=== PATIENT | female | born 1940 | race Caucasian/White ===

== ENCOUNTER → 2017-02-27 | Outpatient (CLI) | payer OTHER ==
[~2017-02-27] MED LIST: AMLO-110 PO; ASPI325T39 PO; HYDR-5688 PO; MECL1TAB40 PO; MULT1CAP7 PO; OMEP20TA PO; PRED20TA PO; TRIA75TA PO
[2017-02-27 12:45] LABS: AST/SGOT 17 U/L (15-37); BLOOD UREA NITROGEN 13 mg/dl (7-18); BUN/CREATININE RATIO 14.4 (10-20); CALCIUM 9.4 mg/dl (8.5-10.1); CARBON DIOXIDE 32 mmol/L (21-32); CHLORIDE 102 mmol/L (98-107); CHOLESTEROL 189 mg/dl (0-200); CREATININE 0.89 mg/dl (0.60-1.20); GLUCOSE 88 mg/dl (70-99); POTASSIUM 3.7 mmol/L (3.5-5.1); SODIUM 139 mmol/L (136-145); TRIGLYCERIDES 51 mg/dl (0-150); VERY LOW DENSITY LIPOPROT CALC 10 mg/dl
[2017-02-27 12:56] LABS: ALB/GLOB RATIO 1.1 (0.9-2); ALKALINE PHOSPHATASE 96 U/L (45-117); ALT/SGPT 26 U/L (12-78); CHOLESTEROL/HDL RATIO 2.7; HDL CHOLESTEROL 70 mg/dl; LDL CHOLESTEROL CALCULATED 109 mg/dl
== END | disposition home or self-care (01) ==
LOC: C.LABBFT 09:55
PROVIDERS: ATTEND Internal Medicine
DX: R09.89 Other specified symptoms and signs involving the circulatory and respiratory systems (principal)

== ENCOUNTER → 2017-05-05 | Outpatient (CLI) | payer OTHER ==
--- NOTE | 2017-05-05 12:50 | DIAGNOSTIC IMAGING REPORT ---
ULTRASOUND RIGHT LOWER EXTREMITY VENOUS CLINICAL HISTORY: Right leg swelling. COMPARISON STUDY: Right lower extremity venous ultrasound dated 10/18/2013. TECHNIQUE: Real-time, grayscale, and color Doppler sonography of the deep veins of the right lower extremity was performed from the inguinal crease to the calf. Compression and augmentation were utilized. FINDINGS: There is no sonographic evidence of deep venous thrombosis identified in the right lower extremity. The common femoral, superficial femoral, and popliteal veins are patent and normally compressible. The greater saphenous vein and the profunda femoris vein at the junction with the common femoral vein are clear. The visualized calf veins are patent. IMPRESSION: There is no sonographic evidence of deep venous thrombosis identified in the right lower extremity. Electronically signed by: Nirmal Valderrama M.D. 05/05/2017 12:48 PM Dictated Date/Time: 05/05/2017 12:47 PM
--- NOTE | 2017-05-05 13:17 | DIAGNOSTIC IMAGING REPORT ---
RIGHT KNEE 2 VIEWS CLINICAL HISTORY: Right knee swelling. FINDINGS: AP and crosstable lateral views of the right knee are compared to study dated 10/18/2013. The skeletal structures are osteopenic. A right knee arthroplasty is in near anatomic alignment. There has been undersurface remodeling of the patella. Mild periprosthetic lucency is suggested around the tibial component. No fracture is seen. There is no joint effusion. The overlying soft tissues are within normal limits. IMPRESSION: 1. No acute bony abnormality is seen in the right knee. 2. A right knee arthroplasty is in near-anatomic alignment. 3. Mild periprosthetic lucency is suggested around the tibial component of the arthroplasty. This is nonspecific but could be seen in the setting of loosening. Clinical correlation will be required. Electronically signed by: Nirmal Valderrama M.D. 05/05/2017 1:15 PM Dictated Date/Time: 05/05/2017 1:13 PM
--- NOTE | 2017-05-10 12:43 | CODING QUERY MEDICAL NECESSITY ---
SUPPORTING DIAGNOSIS NEEDED A supporting diagnosis is required for the test/procedure performed on this patient in order for us to be reimbursed by the patient's insurance. Please provide a supporting diagnosis for the following test/procedure listed below next to the test name along with your signature. *If there is no additional diagnosis for this patient that would support the following test/procedure please document that below next to the test/procedure. Test(s)/Procedure(s) that require a supporting diagnosis: * US VENOUS UNIL LWR EXT DOPPLER DIAGNOSIS: Provider Signature: Date: Thank you Elda Jade [employer] Once completed, please kindly fax back to [phone] For questions please call [phone]
== END | disposition home or self-care (01) ==
LOC: C.ULTR 12:07
PROVIDERS: ATTEND Internal Medicine
DX: M79.604 Pain in right leg (principal); M25.461 Effusion, right knee; M79.89 Other specified soft tissue disorders; R20.2 Paresthesia of skin; Z96.651 Presence of right artificial knee joint

== ENCOUNTER 2017-07-22 18:18 | Emergency (ER) | payer OTHER ==
[~2017-07-22] VITALS: Ht 175.3 cm; Wt 89.1 kg
[~2017-07-22 18:18] MED LIST changes: -PRED20TA PO
[2017-07-22 18:26] VITALS: Ht 175.3 cm; Wt 89.1 kg
[2017-07-22] MEDS ORDERED: METHYLPREDNISOLONE 125 MG VIAL IM STA (18:39)
[2017-07-22] MEDS ORDERED: ACETAMINOPHEN 325 MG TAB PO STA (18:55)
[2017-07-22] MEDS ORDERED: PRED20TA PO (20:56)
[2017-07-22 21:06] VITALS: BP 149/62; PULSE 49; O2SAT 99
--- NOTE | 2017-07-23 00:23 | EMERGENCY ROOM VISIT NOTE ---
History Report prepared by Emerson: Aaron Velazquez Under the Supervision of: Dr. Juan C Kaba M.D. First contact with patient: 18:34 Chief Complaint: ALLERGIC REACTION Stated Complaint: STUNG ON TONGUE BY BEE, SWELLING History of Present Illness The patient is a 76 year old female who presents to the Emergency Room with complaints of a constant allergic reaction starting at around 1805 tonight after getting stung by a bee on the tongue while drinking through a straw. The patient states that she was stung on the tip of the tongue, and she states that it was swollen. She states that her throat has felt okay, and she has not had any itchiness, though she feels nervous. The patient states that she started to feel better after sucking on some ice. The patient denies any abdominal pain, nausea, or face swelling or itchiness. The patient states that she has not been stung by a bee for a long time, and she was unsure if she had a reaction last time, though she states that her son is very allergic. Source of History: patient Onset: 1805 Position: other (global) Quality: other (allergic reaction) Timing: constant Associated Symptoms: No nausea, No abdominal pain Note: Associated symptoms: Tongue swelling Review of Systems See HPI for pertinent positives & negatives. A total of 10 systems reviewed and were otherwise negative. 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 (4) Hallux valgus (acquired), left foot (5) History of pulmonary embolus (PE) (6) Hypertension (7) Pulmonary embolism (8) Septic joint of left knee joint Surgical Problems: (1) S/P cholecystectomy (2) S/P knee replacement Family History Blood clots Hypertension Social History Smoking Status: Never Smoker Alcohol Use: none Drug Use: none Marital Status: Housing Status: lives with family Occupation Status: retired Current/Historical Medications Scheduled Amlodipine (Norvasc), 5 MG PO QAM Aspirin (Aspirin Ec), 325 MG PO QAM Multiple Vitamins W/ Minerals (Multi For Her 50+), 1 CAPSULE PO QAM Prednisone (Prednisone), 3 TAB PO DAILY Triamterene & Hydrochlorothiaz (Hctz/Triamterene), 1 TAB PO QAM Scheduled PRN Meclizine HCl (Meclizine HCl), 1 TAB PO TID PRN for VERTIGO Allergies Coded Allergies: AYDEN Inhibitors (Unverified Allergy, Unknown, per PCP note , 07/22/17) Beef (Verified Allergy, Unknown, SEVERE NAUSEA AND VOMITING, 07/22/17) Celecoxib (Unverified Allergy, Unknown, per PCP note , 07/22/17) Sulfamethoxazole w/Trimethoprim (Unverified Allergy, Unknown, per PCP note , 07/22/17) Oxycodone (Verified Adverse Reaction, Mild, N/V, 07/22/17) Physical Exam Vital Signs Date Time Temp Pulse Resp B/P (MAP) Pulse Ox O2 Delivery O2 Flow Rate FiO2 07/22/17 21:06 49 17 149/62 99 07/22/17 20:40 50 18 135/61 99 07/22/17 18:58 98 Room Air 07/22/17 18:48 72 22 143/86 98 Room Air 07/22/17 18:26 76 20 176/67 98 Room Air Physical Exam Constitutional: Vital signs reviewed. Eyes: Pupils are equal round reactive to light. Conjunctiva are noninjected. ENT: Swelling to the tip of the tongue. No stinger present. Uvula is not swollen. Pharynx is clear without erythema or exudate. Mucous membranes are moist. Neck supple without meningeal signs. Respiratory: No wheezing. No stridor. Clear to auscultation bilaterally. Breath sounds are equal bilaterally. Cardiovascular: Regular rate and rhythm. No rubs or gallops. GI: Soft, nondistended and nontender. Bowel sounds are present. Musculoskeletal: No peripheral edema. Integumentary: No redness or swelling to the face or extremities. No hives. No cyanosis. Neurological: The patient is awake and alert. No focal deficits. Psychiatric: Anxious. Medical Decision & Procedures Medications Administered Medications (Trade) Dose Ordered Sig/Griselda Route Start Time Stop Time Status Last Admin Dose Admin Diphenhydramine HCl (Benadryl Cap) 50 mg NOW ONCE PO 07/22/17 18:45 07/22/17 18:46 DC 07/22/17 18:46 50 MG Methylprednisolone Sodium Succinate (Solu-Medrol IV) 125 mg NOW STAT IM 07/22/17 18:39 07/22/17 18:40 DC 07/22/17 18:47 125 MG Acetaminophen (Tylenol Tab) 650 mg NOW STAT PO 07/22/17 18:55 07/22/17 18:56 DC 07/22/17 19:02 650 MG ED Course 1833: The patient was evaluated in room C5. A complete history and physical exam was performed. 1838: Solu-Medrol IV 125mg IM 1844: Benadryl Arnold 50mg PO 1854: The patient just received a shot of Solu-Medrol in the left arm. She started weeping and is extremely anxious stating that her whole arm hurts from the elbow up. The arm does not show any swelling or erythema. She has tenderness to the injection site. No bleeding is noted. She was given Tylenol 650mg PO for her pain. We will continue to monitor her. 2053: I reevaluated the patient, and her tongue does not appear swollen, and her arm is not hurting her at this time. The patient will be discharged home. Medical Decision This is a 76-year-old female presents with an allergic reaction to bee sting to her tongue. I did perform a limited focused review of portions of the patient' s old chart on the electronic medical record. The patient has had no recent pertinent visits to this hospital. I did evaluate the patient as noted above. The patient is presenting after being stung on the tongue by ABR wasp. She does not have any stinger on her tongue. She has swelling to her tongue but no other symptoms. I did treat the patient with Benadryl 50 mg orally. She was also given Solu-Medrol 125 mg IM. Immediately after the IM injection the patient had severe pain to her left arm. The nurse stated that the injection was not unusual in any way. She was given Tylenol for pain and an ice pack. We did observe her in the ED for some time. Her arm pain eventually improved significantly. There is no signs of swelling or ecchymosis or bleeding. Her tongue swelling significantly improved and she felt well enough for discharge. She was advised to continue antihistamines at home. She was given a prescription for 4 days of prednisone. She was advised follow up with her doctor. She was discharged in good condition. Medication Reconcilliation Current Medication List: was personally reviewed by me Blood Pressure Screening Patient's blood pressure: Elevated blood pressure Blood pressure disposition: Referred to PCP Impression Primary Impression: Allergic reaction to bee sting Scribe Attestation The scribe's documentation has been prepared under my direct and personally reviewed by me in its entirety. I confirm that the note above accurately reflects all work, treatment, procedures, and medical decision making performed by me. Departure Information Dispostion Home / Self-Care Prescriptions Prednisone (Prednisone) 20 Mg Tab 3 TAB PO DAILY, #12 TAB FOR 4 DAYS Prov: Juan C Kaba M.D. 07/22/17 Referrals Blaze Jeffries M.D. (PCP) Forms HOME CARE DOCUMENTATION FORM, IMPORTANT VISIT INFORMATION Patient Instructions ED Bite Sting Insect Gen Allergic React, My [facility] Additional Instructions You have been examined and treated today on an emergency basis only. This is not a substitute for, or an effort to provide, complete comprehensive medical care. It is impossible to recognize and treat all injuries or illnesses in a single emergency department visit. It is therefore important that you follow up closely with your physician. Call as soon as possible for an appointment. Return for worsening symptoms or if you develop fever, shortness of breath, swelling to your throat or any other concerning symptoms.
== END 2017-07-22 21:07 | disposition home or self-care (01) ==
LOC: C.EDB 18:18 → C.EDC 21:07
DX: T63.441A Toxic effect of venom of bees, accidental (unintentional), initial encounter (principal); I10 Essential (primary) hypertension; Z86.711 Personal history of pulmonary embolism; Z96.659 Presence of unspecified artificial knee joint; Z90.49 Acquired absence of other specified parts of digestive tract; Z79.82 Long term (current) use of aspirin; Z79.899 Other long term (current) drug therapy; Z88.2 Allergy status to sulfonamides; Z88.5 Allergy status to narcotic agent; Z88.8 Allergy status to other drugs, medicaments and biological substances; Z91.018 Allergy to other foods; Z82.49 Family history of ischemic heart disease and other diseases of the circulatory system; Z83.2 Family history of diseases of the blood and blood-forming organs and certain disorders involving the immune mechanism

== ENCOUNTER → 2018-06-19 | Outpatient (CLI) | payer OTHER ==
[~2018-06-19] MED LIST changes: -AMLO-110 PO; +AMLO5TAB3 PO; -HYDR-5688 PO; -OMEP20TA PO
[2018-06-19 12:50] LABS: BASO % 0.8 %; BASO ABS # 0.03 K/uL (0-0.2); EOS % 9.9 %; EOS ABS # 0.37 K/uL (0-0.5); HEMATOCRIT 38.1 % (37-47); HEMOGLOBIN 12.8 g/dL (12.0-16.0); LYMPH % 40.3 %; MEAN CELL VOLUME 94.3 fL (80-100); MEAN CORPUSCULAR HEMOGLOBIN 31.7 pg (25-34); MEAN CORPUSCULAR HGB CONC 33.6 g/dl (32-36); MEAN PLATELET VOLUME 10.4 fL (7.4-10.4); MONO % 10.2 %; MONO ABS # 0.38 K/uL (0.11-0.59); NEUT % 38.8 %; NEUT ABS # 1.44 K/uL (1.4-6.5); PLATELET COUNT 287 K/uL (130-400); RED CELL DISTRIBUTION WIDTH CV 12.8 % (11.5-14.5); RED CELL DISTRIBUTION WIDTH SD 43.9 fL (36.4-46.3); WHITE BLOOD COUNT 3.72 K/uL (4.8-10.8)
== END | disposition home or self-care (01) ==
LOC: C.LABBFT 09:13
PROVIDERS: ATTEND Internal Medicine
DX: D72.819 Decreased white blood cell count, unspecified (principal)

== ENCOUNTER 2024-08-17 14:37 | Observation (INO) ==
--- NOTE | 2024-08-17 14:51 | Emergency Department Note ---
Impression & Plan Flank Pain, Ambulatory dysfunction Admission ED Provider Note HPI: History obtained from patient. The patient is a 84-year-old female who presents the emergency department with a chief complaint of left flank pain and left-sided chest discomfort. Patient states that she developed the symptoms earlier today. Patient states that she has some left-sided chest pain as well however this seems to correlate with palpation of the chest wall. Patient received Toradol and aspirin via EMS prior to arrival to the ED. On my assessment here in the ED the patient states that she still does have some pain however it is improved from previous. Chest pain only correlates with palpation the left side of the chest wall. On arrival here to the ED otherwise stable and appears to be in no acute distress. Patient is saturating well on room air on arrival. ROS: - Per HPI Differential Diagnosis: Kidney stone, pyelonephritis, urinary tract infection, costochondritis, musculoskeletal flank pain, diverticulitis flare, acute coronary syndrome, costochondritis, pleuritis, pericarditis, amongst other potential pathologies. *Outpatient medications and allergy history reviewed. PE: General: Alert HEENT: Normocephalic, trachea midline Eyes: Extraocular eye movement is intact, no scleral erythema Pulmonary: Clear to auscultation bilaterally, no wheezing Cardio: Regular rate and rhythm GI: Abdomen is soft to palpation : No suprapubic tenderness MSK: Reproducible tenderness to palpation to the left side of the chest, no evidence of trauma or malformation of the extremities, no edema, there is no tenderness to palpation of the lumbar spine in the midline Skin: No evidence of rash Neuro: Alert, no focal deficits Psychiatric: Cooperative INDEPENDENT INTERPRETATIONS: traffic monitor specialist: (As interpreted by myself): - An order was placed for continuous cardiac monitoring - Patient was noted to be in sinus rhythm with a rate of 75 EKG: (As interpreted by myself): Rate: 75 Rhythm: Normal sinus rhythm Intervals: Within normal limits ST changes: No ST elevation Time: 1443 Chest x-ray: (As interpreted by myself): No acute disease Interventions provided in ED: -IV fluid bolus, IV morphine, IV Zofran Medical Decision Making: IV was established and lab work obtained, patient was placed on school bus monitor. Lab work shows no leukocytosis, hemoglobin stable at 10.1, platelet count is normal, CMP shows a mild hypokalemia at 3.3, troponin is negative x 1, EKG per my interpretation shows normal sinus rhythm without any acute ischemic changes. Chest x-ray per my interpretation does not show any evidence of any focal infiltrate. Urinalysis does not show any evidence of infection. COVID-[address] imaging of the abdomen pelvis without IV contrast was obtained that does not show any evidence of any acute inflammatory findings. Delta troponin was obtained that remains negative. Patient is anticoagulated on Eliquis, therefore low suspicion for PE. On my reassessment the patient states she does not have much improvement in her pain despite receiving IV morphine and IV Zofran here in the ED in addition to the IV Toradol she reportedly received via EMS. Patient was ambulated at the bedside by the RN and had pain in the left lower back and had trouble walking. CT imaging of the abdomen pelvis does not show any evidence of any obvious fractures or lytic lesions within the lumbar spine. She does not feel comfortable with discharge home at this time given the degree of pain she is having with some trouble with ambulation. Patient does not have any red flag findings on history or exam that would be consistent with cauda equina syndrome. Motor and sensory function is intact distally in the bilateral lower extremities. She does not have any radicular symptoms down her legs. Patient does have a borderline temperature here 37.7, however there is no obvious source for infection. Given the patient is ambulatory dysfunction and left flank pain and lower back pain, I did discuss her presentation with the on- call hospitalist, Dr. Leon, and the patient was placed for admission in stable condition. Disposition discussion held by myself with: -Patient and family at bedside Diagnosis: 1. Left flank pain, acute 2. Nonspecific chest discomfort, acute 3. Hypokalemia, acute 4. 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 Allergic reaction to bee sting (Acute) Contracture of joint of left foot Leg pain, right (Acute) Sinus bradycardia (Acute) WBC decreased (Acute) Osteopenia after menopause Arthritis, multiple joint involvement Ocular migraine Abdominal aortic atherosclerosis Vitamin D deficiency Metabolic syndrome Impaired fasting glucose Chronic anticoagulation eliquis daily Systolic murmur Right carotid bruit (Acute) entered 03/21/19 per EMR, patient had head and neck CTA 01/15/19 without significant stenosis Paroxysmal atrial fibrillation (Chronic) on eliquis--follows with PCP Chronic osteoarthritis (Acute) Hypertension (Chronic) Hallux valgus (acquired), left foot History of pulmonary embolus (PE) 2012 after knee replacement surgery Medical History COVID-19 Encounter for pre-operative examination Lump in neck Dietary counseling and surveillance Hip pain Back pain Shingles History of blood transfusion Obesity (BMI 30-39.9) Macular degeneration History of COVID-19 Surgical History S/P cholecystectomy S/P knee replacement History of dilatation and curettage History of toe surgery History of total right knee replacement (TKR) History of wisdom tooth extraction H/O tubal ligation History of total abdominal hysterectomy and bilateral salpingo-oophorectomy History of surgery of liver Family History Father Myocardial infarction Hypertension Grandfather (Paternal) Stroke Brother Myocardial infarction Hypertension Sister Hypertension Family history of reaction to anesthesia Denies family history of Ovarian cancer Prostate cancer Diabetes Depression Breast cancer Lung cancer Colorectal cancer Social History Smoking Status: Unknown if ever smoked Second Hand Exposure: No; Do You Dip or Chew Tobacco: No; Hx Alcohol Use: No Hx Substance Use: No Preferred Language: Azeri Communication Ability: Effective Visual Impairment: Limited Hearing Ability: Normal Cpa Tax Required: No Beliefs That Will Affect Care: None marital status: / Current Living Situation: Alone current occupational status: retired How many Children do You have: 3 Feels Safe at Home: Yes Childhood Exposure to Second-Hand Smoke: No caffeine: Yes Dental Care, Regularly: No Physical Activity Frequency: 3-4 Times per Week Seatbelt Use: always Sunscreen Use: Yes Assistive Devices: Glasses Allergies Allergies Allergy/AdvReac Type Severity Reaction Status Date / Time Beef Containing Products Allergy Severe SEVERE Verified 07/30/24 14:01 NAUSEA AND VOMITING methylprednisolone Allergy Severe "muscle Verified 07/30/24 14:01 [From Solu-Medrol] reaction like someone was hammering on my arm" sulfamethoxazole Allergy Unknown per pt can Verified 07/30/24 14:01 not have due to liver bypass oxycodone AdvReac Mild N/V Verified 07/30/24 14:01 celecoxib AdvReac Unknown nausea/vomi Verified 07/30/24 14:01 ting trimethoprim AdvReac Unknown per pt can Verified 07/30/24 14:01 not have due to liver bypass Home Meds Home Medications Medication Instructions Recorded Confirmed ohvmrqkqdjkb-zsbpnfdm-svnki acid 1 cap PO QAM 01/15/19 07/30/24 400 mcg-vitamin K 80 mcg capsule (Multi For Her 50 Plus) fyermbrj-dnl-xonwqw 5 mg-zeaxanth 1 cap PO QAM 03/28/22 07/30/24 1 mg-bilberry 7.5 mg-herbal capsule ([employer] Health Formula) Previous Rx's Medication Instructions Recorded amlodipine 5 mg tablet 5 mg PO QAM #90 tabs 09/20/23 triamterene 37.5 1 cap PO QAM #90 caps 09/20/23 mg-hydrochlorothiazide 25 mg capsule benzonatate 100 mg capsule 100 mg PO TID PRN cough #20 caps 11/06/23 cyclobenzaprine 5 mg tablet 5 mg PO TID PRN muscle spasm #30 11/06/23 tabs inhalational spacing device (Shayan #1 ea 05/06/24 Aerosol Vilas Enhancer spacer) albuterol sulfate 90 mcg/actuation 1 inh inhalation QID PRN shortness 06/16/24 aerosol inhaler of breath or wheezing #6.7 grams rosuvastatin 5 mg tablet 5 mg PO HS #90 tabs 08/04/24 apixaban 5 mg tablet (Eliquis) 5 mg PO BID 90 days #180 tabs 08/11/24 Results & Data (ED) Vital Signs Vital Signs - 24 hr 08/17/24 14:18 08/17/24 14:18 08/17/24 14:49 Temperature 37.7 C H Temperature Source Oral Pulse Rate 75 Pulse Rate [Right Finger] Pulse Rhythm [Right Finger] Pulse Strength [Right Finger] Respiratory Rate 23 Respiratory Effort / Characteristics Respiratory Depth Respiratory Pattern Blood Pressure 159/75 H Blood Pressure [Right Arm] Blood Pressure Mean 103 Blood Pressure Mean [Right Arm] Blood Pressure Position [Right Arm] Pulse Oximetry 96 Oxygen Delivery Method Room Air Room Air Room Air Sepsis Recent Fever Within 48 Hours Yes Sepsis New/Unexplained Change in Mental Status No Sepsis Action Taken by Nursing No Action Required 08/17/24 16:06 08/17/24 16:35 08/17/24 17:02 Temperature Temperature Source Pulse Rate 57 L Pulse Rate [Right Finger] 66 67 Pulse Rhythm [Right Finger] Regular Regular Pulse Strength [Right Finger] Normal Normal Respiratory Rate 21 20 Respiratory Effort / Characteristics Non-Labored Non-Labored Respiratory Depth Normal Normal Respiratory Pattern Regular Regular Blood Pressure Blood Pressure [Right Arm] 139/65 121/71 Blood Pressure Mean Blood Pressure Mean [Right Arm] 89 87 Blood Pressure Position [Right Arm] Lying Lying Pulse Oximetry 94 94 Oxygen Delivery Method Room Air Room Air Sepsis Recent Fever Within 48 Hours Sepsis New/Unexplained Change in Mental Status Sepsis Action Taken by Nursing Laboratory Data 08/17/24 14:50 08/17/24 14:50 Lab Results 08/17/24 08/17/24 08/17/24 Range/Units 14:50 15:01 16:10 WBC 8.78 (4.8-10.8) K/ul RBC 3.46 L (4.20-5.40) M/uL Hgb 10.1 L (12.0-16.0) g/dl Hct 31.5 L (37.0-47.0) % MCV 91.0 (80.0-100.0) fL MCH 29.2 (25.0-34.0) pg MCHC 32.1 (32.0-36.0) g/dL RDW Std Deviation 45.1 (36.4-46.3) fL RDW Coeff of Moody 13.4 (11.5-14.5) % Plt Count 190 (130-400) K/uL MPV 10.4 (9.4-12.4) fL Immature Gran % (Auto) 0.5 % Neut % (Auto) 91.7 % Lymph % (Auto) 3.4 % Graham % (Auto) 3.1 % Eos % (Auto) 0.8 % Baso % (Auto) 0.5 % Neut # (Auto) 8.06 H (1.40-6.50) K/uL Lymph # (Auto) 0.30 L (1.20-3.40) K/uL Graham # (Auto) 0.27 (0.11-0.59) K/uL Eos # (Auto) 0.07 (0.00-0.50) K/uL Baso # (Auto) 0.04 (0.00-0.20) K/uL Immature Gran # (Auto) 0.04 (0.01-0.20) K/uL PT 11.0 (9.0-12.0) Seconds INR 1.0 (0.9-1.1) Sodium 135 L (136-145) mmol/L Potassium 3.3 L (3.5-5.1) mmol/L Chloride 101 (98-107) mmol/L Carbon Dioxide 28 (21-32) mmol/L Anion Gap 6 (3-11) BUN 19 (6-23) mg/dl Creatinine 0.68 (0.6-1.2) mg/dl Est Cr Clr Drug Dosing 81.4 ml/min eGFR 86.90 BUN/Creatinine Ratio 27.9 H (10-20) Glucose 102 H (70-99(Fasting)) mg/dl Calcium 8.8 (8.6-10.3) mg/dl Total Bilirubin 0.8 (0.2-1.0) mg/dl AST 23 (13-39) U/L ALT 15 (7-52) U/L Alkaline Phosphatase 96 (34-104) U/L Troponin I High Sens 9.3 11.1 (0-14) pg/ml Total Protein 6.1 (6.0-8.3) gm/dl Albumin 3.5 (3.4-5.0) gm/dl Globulin 2.6 (2.5-4.0) gm/dl Albumin/Globulin Ratio 1.3 (0.9-2) Lipase 10 L (11-82) U/L Urine Color Yellow Urine Appearance Clear (Clear) Urine pH 6.0 (4.5-7.5) Ur Specific [place] 1.011 (1.000-1.030) Urine Protein Negative (Negative) Urine Glucose (UA) Negative (Negative) Urine Ketones Negative (Negative) Urine Blood Negative (Negative) Urine Nitrite Negative (Negative) Urine Bilirubin Negative (Negative) Urine Urobilinogen Negative (Negative) Ur Leukocyte Esterase Negative (Negative) SARS-CoV-2 (PCR) NEGATIVE (Negative) Influenza Type A (PCR) Negative (Neg) Influenza Type B (PCR) Negative (Neg) RSV (RT-PCR) Negative (Neg) Administered Medications Discontinued Medications Sodium Chloride (Nss) 500 mls @ 999 mls/hr IV .Q31M STA Stop: 08/17/24 15:19 Last Infusion: 08/17/24 16:31 Dose: Infused Documented By: Admin: 08/17/24 15:21 Dose: 999 mls/hr Documented By: HOMERO Morphine Sulfate (Morphine Sulfate 4 Mg/Ml 1 Ml Carp\\Vial) 4 mg IV NOW STA Stop: 08/17/24 16:25 Last Admin: 08/17/24 16:28 Dose: 4 mg Documented By: HOMERO Ondansetron HCl (Ondansetron Inj 2 Mg/Ml 2 Ml Vial) 4 mg IV NOW STA Stop: 08/17/24 16:25 Last Admin: 08/17/24 16:27 Dose: 4 mg Documented By: HOMERO Potassium Chloride (Potassium Chloride Pwd 20 Meq Pack) 20 meq PO NOW STA Stop: 08/17/24 16:59 Last Admin: 08/17/24 17:04 Dose: 20 meq Documented By: HOMERO Imaging Data Radiologist's Impression: Abdomen/Pelvis CT 08/17/24 14:49 CT SCAN OF THE ABDOMEN AND PELVIS WITHOUT IV CONTRAST CLINICAL HISTORY: Left flank pain. COMPARISON STUDY: Abdominal CT dated 07/17/2024. TECHNIQUE: CT scan of the abdomen and pelvis is performed from the lung bases to the proximal femora. Images are reviewed in the axial, sagittal, and coronal planes. IV contrast was not administered for this examination. A dose lowering technique was utilized adhering to the principles of ALARA. CT DOSE: 1214.92 mGy.cm FINDINGS: Lung bases: The heart is normal in size and without pericardial effusion. There is coronary artery atherosclerosis. Diminished attenuation of the cardiac blood pool as compared to the myocardium suggests anemia. The lung bases are clear noting bibasilar scarring/atelectasis. Liver: The unenhanced liver is normal in size, contour, and attenuation. Pneumobilia is similar previous, left lobe greater than right. There is no intrahepatic biliary ductal dilatation. Gallbladder: Surgically absent noting clips in the gallbladder fossa. Spleen: Normal in size and attenuation. Pancreas: The unenhanced pancreas is mildly atrophic and grossly unremarkable. Adrenal glands: Unremarkable. Kidneys: The unenhanced kidneys demonstrate mild cortical atrophy and are without hydronephrosis. No renal calculi are identified and there is no ureteral stone. There is no evidence of contour deforming renal mass lesion. Abdominal vasculature: The abdominal aorta is normal in course and caliber noting moderate atherosclerotic calcification. Bowel: There is wmrv-no-lwbjxqor colonic fecal retention. No bowel obstruction is seen. The appendix is well-visualized and normal. Peritoneum: There is no intraperitoneal free air or abdominal ascites. There is a small fat-containing umbilical hernia. Lymphadenopathy: None. Pelvic viscera: The bladder is decompressed and grossly unremarkable. The uterus is surgically absent. No adnexal lesion is seen. Skeletal structures: The skeletal structures are osteopenic. There is moderate lumbosacral spondylosis and mild scoliosis. No lytic or blastic lesions are seen. Sclerotic change is noted in the sacroiliac joints and pubic symphysis. IMPRESSION: 1. No acute infectious or inflammatory findings are identified in the abdomen or pelvis. 2. Additional findings as above. ACT 112: Negative or not required by law. Electronically signed by: Nirmal Valderrama M.D. 08/17/2024 4:42 PM Chest X-Ray 08/17/24 14:49 SINGLE VIEW CHEST CLINICAL HISTORY: Atypical chest pain. FINDINGS: An AP, portable, upright chest radiograph is compared to study dated 04/29/2024. The heart is enlarged noting atherosclerotic calcification of the thoracic aorta. The pulmonary vasculature is noncongested. Chronic interstitial thickening is similar to previous. There is mild bibasilar scarring/atelectasis. The lungs and pleural spaces are otherwise clear. No pneumothorax is seen. The skeletal structures are osteopenic. The bony thorax is grossly intact. Degenerative change is noted in the shoulders and spine. Cholecystectomy clips are noted in the right upper quadrant. IMPRESSION: Cardiomegaly with no active disease in the chest. ACT 112: Negative or not required by law. Electronically signed by: Nirmal Valderrama M.D. 08/17/2024 3:09 PM Discharge Plan Visit Data Chief Complaint: Flank Pain ED Provider: Bialas,Pop A. Discharge Problem: Flank Pain, Ambulatory dysfunction Patient Disposition: Home - Self-Care Condition: Good Discharge Instructions Elisa/Other Patient Handouts: ED Flank Pain, Uncertain Cause Activity Restrictions/Additional Instructions: Please follow-up with your primary care doctor in 2 to 3 days for reassessment and further management. Please return to the ER if you have any new or worsening symptoms. Please utilize Tylenol at home as needed for pain/fever, please follow dosage instructions as indicated on the packaging. Forms Stand Alone Forms: [facility], Important Visit Information Prescriptions Prescriptions: No Action amlodipine 5 mg tablet 5 mg PO QAM Qty: 90 3RF triamterene-hydrochlorothiazid 37.5-25 mg capsule 1 cap PO QAM Qty: 90 3RF (DME) Shayan Aerosol Vilas Enhancer Spacer See Rx Instructions .Route Qty: 1 0RF Rx Instructions: As directed albuterol sulfate 90 mcg/actuation HFA aerosol inhaler 1 inh inhalation QID PRN (Reason: shortness of breath or wheezing) Qty: 6.7 0RF Rx Instructions: please provide spacer rosuvastatin 5 mg tablet 5 mg PO HS Qty: 90 1RF Eliquis 5 mg tablet 5 mg PO BID 90 Days Qty: 180 3RF Rx Instructions: TAKE 1 TABLET BY MOUTH TWICE DAILY Multi For Her 50 Plus 400-80 mcg Capsule 1 cap PO QAM Macular Health Formula 5-1-7.5 mg Capsule 1 cap PO QAM benzonatate 100 mg capsule 100 mg PO TID PRN (Reason: cough) Qty: 20 0RF cyclobenzaprine 5 mg tablet 5 mg PO TID PRN (Reason: muscle spasm) Qty: 30 0RF Referrals Referrals: Maurice Correia, [Primary Care Provider] -
--- NOTE | 2024-08-17 15:11 | XRay Report ---
SINGLE VIEW CHEST CLINICAL HISTORY: Atypical chest pain. FINDINGS: An AP, portable, upright chest radiograph is compared to study dated 04/29/2024. The heart i s enlarged noting atherosclerotic calcification of the thoracic aorta. The pulmonary vasculature is n oncongested. Chronic interstitial thickening is similar to previous. There is mild bibasilar scarring /atelectasis. The lungs and pleural spaces are otherwise clear. No pneumothorax is seen. The skeletal structures are osteopenic. The bony thorax is grossly intact. Degenerative change is noted in the sh oulders and spine. Cholecystectomy clips are noted in the right upper quadrant. IMPRESSION: Cardiomegaly with no active disease in the chest. ACT 112: Negative or not required by law. Electronically signed by: Nirmal Valderrama M.D. 08/17/2024 3:09 PM
[2024-08-17] MEDS: SODIUM CHLORIDE 0.9% 500 ML IV STA (15:21)
[2024-08-17 15:24] LABS: Appearance Urine Clear (Clear); Bilirubin Urine Negative (Negative); Blood Urine Negative (Negative); Color Urine Yellow; Glucose Urine UA Negative (Negative); Ketones Urine Negative (Negative); Leukocyte Esterase Urine Negative (Negative); Nitrite Urine Negative (Negative); Protein Urine Negative (Negative); Specific Gravity Urine 1.011 (1.000-1.030); Urobilinogen Urine Negative (Negative)
[2024-08-17 15:26] LABS: Hematocrit (blood only) 31.5 % (37.0-47.0); Hemoglobin 10.1 g/dl (12.0-16.0); Mean Corpuscular Hemoglobin 29.2 pg (25.0-34.0); Mean Corpuscular Hgb Conc 32.1 g/dL (32.0-36.0); Mean Platelet Volume 10.4 fL (9.4-12.4); Platelet Count 190 K/uL (130-400); RDW Coefficient of Variation 13.4 % (11.5-14.5); RDW Standard Deviation 45.1 fL (36.4-46.3); Red Blood Count 3.46 M/uL (4.20-5.40); White Blood Count 8.78 K/ul (4.8-10.8)
[2024-08-17 15:43] LABS: Albumin Globulin Ratio 1.3 (0.9-2); Albumin Level 3.5 gm/dl (3.4-5.0); BUN Creatinine Ratio 27.9 (10-20); Bilirubin,Total 0.8 mg/dl (0.2-1.0); Calcium 8.8 mg/dl (8.6-10.3); Creatinine Clr Calc Pharmacy 81.4 ml/min; Globulin 2.6 gm/dl (2.5-4.0); Potassium 3.3 mmol/L (3.5-5.1); Total Protein 6.1 gm/dl (6.0-8.3)
[2024-08-17 15:47] LABS: Basophils # (auto) 0.04 K/uL (0.00-0.20); Basophils % (auto) 0.5 %; Eosinophils # (auto) 0.07 K/uL (0.00-0.50); Eosinophils % (auto) 0.8 %; Immature Granulocytes # (auto) 0.04 K/uL (0.01-0.20); Immature Granulocytes % (auto) 0.5 %; Lymphocytes % (auto) 3.4 %; Monocytes # (auto) 0.27 K/uL (0.11-0.59); Monocytes % (auto) 3.1 %; Neutrophils # (auto) 8.06 K/uL (1.40-6.50); Neutrophils % (auto) 91.7 %
[2024-08-17 15:49] LABS: Troponin I High Sensitivity 9.3 pg/ml (0-14)
[2024-08-17 15:56] LABS: Influenza A virus by PCR Negative (Neg); Influenza B virus by PCR Negative (Neg); RSV by PCR Negative (Neg); SARS CoV2 RNA(COVID-19) Ceph NEGATIVE (Negative)
[2024-08-17] MEDS: ONDANSETRON INJ 2 MG/ML 2 ML VIAL IV STA (16:27)
[2024-08-17] MEDS: MoRPHine SULFATE 4 MG/ML 1 ML CARP\\VIAL IV STA (16:28)
--- NOTE | 2024-08-17 16:44 | CT Scan Report ---
CT SCAN OF THE ABDOMEN AND PELVIS WITHOUT IV CONTRAST CLINICAL HISTORY: Left flank pain. COMPARISON STUDY: Abdominal CT dated 07/17/2024. TECHNIQUE: CT scan of the abdomen and pelvis is performed from the lung bases to the proximal femora. Images are reviewed in the axial, sagittal, and coronal planes. IV contrast was not administered for this examination. A dose lowering technique was utilized adhering to the principles of ALARA. CT DOSE: 1214.92 mGy.cm FINDINGS: Lung bases: The heart is normal in size and without pericardial effusion. There is coronary artery at herosclerosis. Diminished attenuation of the cardiac blood pool as compared to the myocardium suggest s anemia. The lung bases are clear noting bibasilar scarring/atelectasis. Liver: The unenhanced liver is normal in size, contour, and attenuation. Pneumobilia is similar previ ous, left lobe greater than right. There is no intrahepatic biliary ductal dilatation. Gallbladder: Surgically absent noting clips in the gallbladder fossa. Spleen: Normal in size and attenuation. Pancreas: The unenhanced pancreas is mildly atrophic and grossly unremarkable. Adrenal glands: Unremarkable. Kidneys: The unenhanced kidneys demonstrate mild cortical atrophy and are without hydronephrosis. No renal calculi are identified and there is no ureteral stone. There is no evidence of contour deformin g renal mass lesion. Abdominal vasculature: The abdominal aorta is normal in course and caliber noting moderate atheroscle rotic calcification. Bowel: There is qjef-nt-lympuenw colonic fecal retention. No bowel obstruction is seen. The appendix is well-visualized and normal. Peritoneum: There is no intraperitoneal free air or abdominal ascites. There is a small fat-containin g umbilical hernia. Lymphadenopathy: None. Pelvic viscera: The bladder is decompressed and grossly unremarkable. The uterus is surgically absent . No adnexal lesion is seen. Skeletal structures: The skeletal structures are osteopenic. There is moderate lumbosacral spondylosi s and mild scoliosis. No lytic or blastic lesions are seen. Sclerotic change is noted in the sacroili ac joints and pubic symphysis. IMPRESSION: 1. No acute infectious or inflammatory findings are identified in the abdomen or pelvis. 2. Additional findings as above. ACT 112: Negative or not required by law. Electronically signed by: Nirmal Valderrama M.D. 08/17/2024 4:42 PM
[2024-08-17] MEDS: POTASSIUM CHLORIDE PWD 20 MEQ PACK PO STA (17:04)
--- NOTE | 2024-08-17 18:10 | History & Physical Report ---
Date of Service August 17, 2024 Assessment & Plan (1) Flank Pain: Plan: No anatomical reason on CT for flank and abdominal pain No associated nausea, vomiting or diarrhea. Suspect most likely IBS pain related to excess eating yesterday and will trial Bentyl PRN in addition to scheduled acetaminophen Reassuringly she had a similar presentation on July 17 which eventually self resolved therefore suspect this will resolve with time No dermatomal distribution or rash to suggest shingles Low fiber, lactose free diet (patient requested low fat in addition) Observation on med/surg overnight given severity of pain causing ambulatory dysfunction at this time (2) Ambulatory dysfunction: Plan: Secondary to pain above, PT/OT (3) Hypertension: Plan: Blood pressure appears low normal, will place hold on her usual anti- hypertensives at this time (4) Paroxysmal atrial fibrillation: Plan: Currently in NSR Continue Eliquis (5) Aortic stenosis: Plan: Noted murmur on exam with mild to moderate disease in March 2024 Plan VTE Prophylaxis - low risk Diet - low fiber, low fat, lactose intolerance Disposition - observation to med/surg Admission and Anticipated Discharge Date Admission Date: August 17, 2024 History of Present Illness Chief Complaint: Left flank and abdominal pain Primary Care Provider: Maurice Correia DO Dalila Ignacio is an 84 year old female who presents to the ER with left sided abdominal and flank pain. Symptoms started earlier today. She reports eating a lot yesterday for her birthday and initially wondered whether it could just be that but appeared to be getting worse throughout the day. Non-cramping, constant ache on left flank and left abdomen. Severity 6/10. Improved with morphine given in ER but started to come back again. Worse on movement but no significant change on sitting or lying down. No radiation from back or anywhere else. No associated, nausea, vomiting, diarrhea, constipation, hematochezia or melena. No fever, chills, respiratory or urinary symptoms. Allergies Allergy/AdvReac Type Severity Reaction Status Date / Time Beef Containing Products Allergy Severe SEVERE Verified 08/17/24 17:31 NAUSEA AND VOMITING methylprednisolone Allergy Severe "muscle Verified 08/17/24 17:31 [From Solu-Medrol] reaction like someone was hammering on my arm" sulfamethoxazole Allergy Unknown per pt can Verified 08/17/24 17:31 not have due to liver bypass oxycodone AdvReac Mild N/V Verified 08/17/24 17:31 celecoxib AdvReac Unknown nausea/vomi Verified 08/17/24 17:31 ting trimethoprim AdvReac Unknown per pt can Verified 08/17/24 17:31 not have due to liver bypass Home Medications Medication Instructions Recorded Confirmed Type dnclzapnxzsi-qyryrxrt-tuksa acid 1 cap PO QAM 01/15/19 08/17/24 History 400 mcg-vitamin K 80 mcg capsule (Multi For Her 50 Plus) cvfrqdqh-ver-zcgkxs 5 mg-zeaxanth 1 cap PO QAM 03/28/22 08/17/24 History 1 mg-bilberry 7.5 mg-herbal capsule ([employer] Formula) amlodipine 5 mg tablet 5 mg PO QAM #90 tabs 09/20/23 08/17/24 Rx triamterene 37.5 1 cap PO QAM #90 caps 09/20/23 08/17/24 Rx mg-hydrochlorothiazide 25 mg capsule cyclobenzaprine 5 mg tablet 5 mg PO TID PRN muscle spasm #30 11/06/23 08/17/24 Rx tabs inhalational spacing device (Shayan #1 ea 05/06/24 Rx Aerosol [place] Enhancer spacer) rosuvastatin 5 mg tablet 5 mg PO HS #90 tabs 08/04/24 08/17/24 Rx apixaban 5 mg tablet (Eliquis) 5 mg PO BID 90 days #180 tabs 08/11/24 08/17/24 Rx Past Med/Surg History Problem List (Updated 08/17/24 @ 17:32 by Pop Payne DO) Ambulatory dysfunction (Acute) Flank Pain (Acute) Disappearance and of family member Class 2 severe obesity with serious comorbidity and body mass index (BMI) of 37.0 to 37.9 in adult Aortic stenosis mild to moderate 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 Allergic reaction to bee sting (Acute) Contracture of joint of left foot Leg pain, right (Acute) Sinus bradycardia (Acute) WBC decreased (Acute) Osteopenia after menopause Arthritis, multiple joint involvement Ocular migraine Abdominal aortic atherosclerosis Vitamin D deficiency Metabolic syndrome Impaired fasting glucose Chronic anticoagulation eliquis daily Systolic murmur Right carotid bruit (Acute) entered 03/21/19 per EMR, patient had head and neck CTA 01/15/19 without significant stenosis Paroxysmal atrial fibrillation (Chronic) on eliquis--follows with PCP Chronic osteoarthritis (Acute) Hypertension (Chronic) Hallux valgus (acquired), left foot History of pulmonary embolus (PE) 2012 after knee replacement surgery Medical History COVID-19 Encounter for pre-operative examination Lump in neck Dietary counseling and surveillance Hip pain Back pain Shingles History of blood transfusion Obesity (BMI 30-39.9) Macular degeneration History of COVID-19 Surgical History S/P cholecystectomy S/P knee replacement History of dilatation and curettage History of toe surgery History of total right knee replacement (TKR) History of wisdom tooth extraction H/O tubal ligation History of total abdominal hysterectomy and bilateral salpingo-oophorectomy History of surgery of liver Family History Father Myocardial infarction Hypertension Grandfather (Paternal) Stroke Brother Myocardial infarction Hypertension Sister Hypertension Family history of reaction to anesthesia Denies family history of Ovarian cancer Prostate cancer Diabetes Depression Breast cancer Lung cancer Colorectal cancer Social History Smoking Status: Never smoker Second Hand Exposure: No; Do You Dip or Chew Tobacco: No; Hx Alcohol Use: No Hx Substance Use: No Preferred Language: Mexican Communication Ability: Effective Visual Impairment: Limited Hearing Ability: Normal [employer] Required: No Beliefs That Will Affect Care: None marital status: / Current Living Situation: Alone Current Living Situation Comment: apartment current occupational status: retired How many Children do You have: 3 Feels Safe at Home: Yes Childhood Exposure to Second-Hand Smoke: No caffeine: Yes Dental Care, Regularly: No Physical Activity Frequency: 3-4 Times per Week Seatbelt Use: always Sunscreen Use: Yes Assistive Devices: Cane Review of Systems Review of Systems: All systems reviewed & are unremarkable except as noted in HPI & below Physical Exam Constitutional: WD/WN, vitals as above Eyes: + anicteric sclerae; normal pupil size Respiratory: normal respiratory effort, lungs clear to auscultation Cardiovascular: Rate/Rhythm: regular rate and regular rhythm Heart Sounds: + murmur (SHARON 4/6, LUSB) Extremities: normal capillary refill; no calf tenderness and no pedal edema Gastrointestinal (Abdomen): Inspection/Auscultation: abdomen normal to inspection; abdomen not distended Percussion/Palpation: + abdomen tender (Left sided), + guarding and abdomen soft; abdomen not rigid Musculoskeletal: no cyanosis or clubbing, extremities motor strength 5/5 Spine: no paraspinal tenderness Skin: no rashes, warm and dry Neurologic: moves all extremities and awake; not confused Psychiatric: A+Ox3, euthymic affect Genitourinary: + CVA tenderness (left) Results & Data Results & Data Vital Signs (Past 12 Hours) Vital Signs Temp Pulse Pulse Resp BP BP Pulse Ox 08/17/24 17:02 57 L 08/17/24 16:35 67 20 121/71 94 08/17/24 16:06 66 21 139/65 94 08/17/24 14:49 08/17/24 14:18 08/17/24 14:18 37.7 C H 75 23 159/75 H 96 O2 Del Method 08/17/24 17:02 08/17/24 16:35 Room Air 08/17/24 16:06 Room Air 08/17/24 14:49 Room Air 08/17/24 14:18 Room Air 08/17/24 14:18 Room Air Laboratory Results Abnormal lab results 08/17/24 Range/Units 14:50 RBC 3.46 L (4.20-5.40) M/uL Hgb 10.1 L (12.0-16.0) g/dl Hct 31.5 L (37.0-47.0) % Neut # (Auto) 8.06 H (1.40-6.50) K/uL Lymph # (Auto) 0.30 L (1.20-3.40) K/uL Sodium 135 L (136-145) mmol/L Potassium 3.3 L (3.5-5.1) mmol/L BUN/Creatinine Ratio 27.9 H (10-20) Glucose 102 H (70-99(Fasting)) mg/dl Lipase 10 L (11-82) U/L Diagnostic Findings SINGLE VIEW CHEST CLINICAL HISTORY: Atypical chest pain. FINDINGS: An AP, portable, upright chest radiograph is compared to study dated 04/29/2024. The heart is enlarged noting atherosclerotic calcification of the thoracic aorta. The pulmonary vasculature is noncongested. Chronic interstitial thickening is similar to previous. There is mild bibasilar scarring/atelectasis. The lungs and pleural spaces are otherwise clear. No pneumothorax is seen. The skeletal structures are osteopenic. The bony thorax is grossly intact. Degenerative change is noted in the shoulders and spine. Cholecystectomy clips are noted in the right upper quadrant. IMPRESSION: Cardiomegaly with no active disease in the chest. CT SCAN OF THE ABDOMEN AND PELVIS WITHOUT IV CONTRAST CLINICAL HISTORY: Left flank pain. COMPARISON STUDY: Abdominal CT dated 07/17/2024. TECHNIQUE: CT scan of the abdomen and pelvis is performed from the lung bases to the proximal femora. Images are reviewed in the axial, sagittal, and coronal planes. IV contrast was not administered for this examination. A dose lowering technique was utilized adhering to the principles of ALARA. CT DOSE: 1214.92 mGy.cm FINDINGS: Lung bases: The heart is normal in size and without pericardial effusion. There is coronary artery atherosclerosis. Diminished attenuation of the cardiac blood pool as compared to the myocardium suggests anemia. The lung bases are clear noting bibasilar scarring/atelectasis. Liver: The unenhanced liver is normal in size, contour, and attenuation. Pneumo bilia is similar previous, left lobe greater than right. There is no intrahepatic biliary ductal dilatation. Gallbladder: Surgically absent noting clips in the gallbladder fossa. Spleen: Normal in size and attenuation. Pancreas: The unenhanced pancreas is mildly atrophic and grossly unremarkable. Adrenal glands: Unremarkable. Kidneys: The unenhanced kidneys demonstrate mild cortical atrophy and are without hydronephrosis. No renal calculi are identified and there is no ureteral stone. There is no evidence of contour deforming renal mass lesion. Abdominal vasculature: The abdominal aorta is normal in course and caliber noting moderate atherosclerotic calcification. Bowel: There is ysaa-hn-gsuoftxc colonic fecal retention. No bowel obstruction is seen. The appendix is well-visualized and normal. Peritoneum: There is no intraperitoneal free air or abdominal ascites. There is a small fat-containing umbilical hernia. Lymphadenopathy: None. Pelvic viscera: The bladder is decompressed and grossly unremarkable. The uterus is surgically absent. No adnexal lesion is seen. Skeletal structures: The skeletal structures are osteopenic. There is moderate lumbosacral spondylosis and mild scoliosis. No lytic or blastic lesions are seen. Sclerotic change is noted in the sacroiliac joints and pubic symphysis. IMPRESSION: 1. No acute infectious or inflammatory findings are identified in the abdomen or pelvis. 2. Additional findings as above. Medications Administered ER Medications Given: Normal saline 500 mL bolus Morphine 4 mg IV Ondansetron 4 mg IV Potassium chloride 20 mEq p.o. ECG Rate (beats per minute): 75 Rhythm: sinus with SA Findings: + RBBB (incomplete); no acute ischemic change Comparison ECG Date: from (July 17, 2024) Change: no significant change Code Status & VTE Plan Code Status Full VTE Prophylaxis Plan VTE Prophylaxis will be ordered: No PG Care Time/CCT Total # of Minutes Spent Total Time Spent with Patient: Total time spent is greater than 50% in coordination of care (as documented) at patient's floor/unit and/or counseling patient: Coding Level of Care Code 46151 INT INP/OBS CARE 2/55MIN Diagnoses Flank Pain R10.9 Ambulatory dysfunction R26.2 Essential hypertension I10 Hypertension type: essential hypertension Paroxysmal atrial fibrillation I48.0 Aortic stenosis I35.0 (3) Hypertension Hypertension type: essential hypertension Qualified Code(s): I10 - Essential (primary) hypertension
[2024-08-17] MEDS: DICYCLOMINE HCL 10 MG CAP PO STA (19:29)
[2024-08-17] MEDS ORDERED: CYCLOBENZAPRINE HCL 5 MG TAB PO PRN (20:37)
[2024-08-17] MEDS ORDERED: DICYCLOMINE HCL 20 MG TAB PO PRN (20:44)
[2024-08-17] MEDS ORDERED: ACETAMINOPHEN 500 MG TAB PO SCH (21:00)
[2024-08-17 21:12] VITALS: RESP 16
[2024-08-17] MEDS: LACTATED RINGER'S 1,000 ML IV SCH (21:22)
[2024-08-17] MEDS: ACETAMINOPHEN 500 MG TAB PO SCH (21:22)
[2024-08-17] MEDS: APIXABAN 5 MG TABLET PO SCH (21:22)
[2024-08-17] MEDS: ROSUVASTATIN CALCIUM 5 MG TAB PO SCH (21:22)
--- NOTE | 2024-08-18 08:04 | Discharge Summary ---
Date of Service August 18, 2024 Admission HPI Per Admitting Provider Dalila Pierre is an 84 year old female who presents to the ER with left sided abdominal and flank pain. Symptoms started earlier today. She reports eating a lot yesterday for her birthday and initially wondered whether it could just be that but appeared to be getting worse throughout the day. Non-cramping, constant ache on left flank and left abdomen. Severity 6/10. Improved with morphine given in ER but started to come back again. Worse on movement but no significant change on sitting or lying down. No radiation from back or anywhere else. No associated, nausea, vomiting, diarrhea, constipation, hematochezia or melena. No fever, chills, respiratory or urinary symptoms. Admission Exam Per Admitting Provider Constitutional: WD/WN, vitals as above Eyes: + anicteric sclerae; normal pupil size Respiratory: normal respiratory effort, lungs clear to auscultation Cardiovascular: Rate/Rhythm: regular rate and regular rhythm Heart Sounds: + murmur (SHARON 4/6, LUSB) Extremities: normal capillary refill; no calf tenderness and no pedal edema Gastrointestinal (Abdomen): Inspection/Auscultation: abdomen normal to inspection; abdomen not distended Percussion/Palpation: + abdomen tender (Left sided), + guarding and abdomen soft; abdomen not rigid Musculoskeletal: no cyanosis or clubbing, extremities motor strength 5/5 Spine: no paraspinal tenderness Skin: no rashes, warm and dry Neurologic: moves all extremities and awake; not confused Psychiatric: A+Ox3, euthymic affect Genitourinary: + CVA tenderness (left) Principal Diagnosis Ambulatory dysfunction 2/2 severe pain Discharge Exam Gen: NAD, WD/WN HEENT: NCAT, PERRL CV: RRR, 4/6 systolic murmur /cw aortic stenosis Resp: CTAB, symmetrical chest rise, breathing non-labored Abd: Soft, NT/ND, +BS MSK: No gross deformities; significant paraspinal tenderness to deep pressure; palpable mass of tension along L quadratus lumborum Skin: Warm, dry, pink, no rashes or lesions Neuro: AOx3, CN II-XII grossly intact Psych: Mood-affect congruent. Speech pace and content normal. Discharge Data Allergies Allergy/AdvReac Type Severity Reaction Status Date / Time Beef Containing Products Allergy Severe SEVERE Verified 08/17/24 17:31 NAUSEA AND VOMITING methylprednisolone Allergy Severe "muscle Verified 08/17/24 17:31 [From Solu-Medrol] reaction like someone was hammering on my arm" sulfamethoxazole Allergy Unknown per pt can Verified 08/17/24 17:31 not have due to liver bypass oxycodone AdvReac Mild N/V Verified 08/17/24 17:31 celecoxib AdvReac Unknown nausea/vomi Verified 08/17/24 17:31 ting trimethoprim AdvReac Unknown per pt can Verified 08/17/24 17:31 not have due to liver bypass Consultations 08/17/24 17:26 ED Decision to Admit Stat Ordered Studies 08/18/24 07:12 08/18/24 07:12 Abdomen/Pelvis CT 08/17/24 14:49 CT SCAN OF THE ABDOMEN AND PELVIS WITHOUT IV CONTRAST CLINICAL HISTORY: Left flank pain. COMPARISON STUDY: Abdominal CT dated 07/17/2024. TECHNIQUE: CT scan of the abdomen and pelvis is performed from the lung bases to the proximal femora. Images are reviewed in the axial, sagittal, and coronal planes. IV contrast was not administered for this examination. A dose lowering technique was utilized adhering to the principles of ALARA. CT DOSE: 1214.92 mGy.cm FINDINGS: Lung bases: The heart is normal in size and without pericardial effusion. There is coronary artery atherosclerosis. Diminished attenuation of the cardiac blood pool as compared to the myocardium suggests anemia. The lung bases are clear noting bibasilar scarring/atelectasis. Liver: The unenhanced liver is normal in size, contour, and attenuation. Pneumobilia is similar previous, left lobe greater than right. There is no intrahepatic biliary ductal dilatation. Gallbladder: Surgically absent noting clips in the gallbladder fossa. Spleen: Normal in size and attenuation. Pancreas: The unenhanced pancreas is mildly atrophic and grossly unremarkable. Adrenal glands: Unremarkable. Kidneys: The unenhanced kidneys demonstrate mild cortical atrophy and are without hydronephrosis. No renal calculi are identified and there is no ureteral stone. There is no evidence of contour deforming renal mass lesion. Abdominal vasculature: The abdominal aorta is normal in course and caliber noting moderate atherosclerotic calcification. Bowel: There is bxuw-gw-spdnilqy colonic fecal retention. No bowel obstruction is seen. The appendix is well-visualized and normal. Peritoneum: There is no intraperitoneal free air or abdominal ascites. There is a small fat-containing umbilical hernia. Lymphadenopathy: None. Pelvic viscera: The bladder is decompressed and grossly unremarkable. The uterus is surgically absent. No adnexal lesion is seen. Skeletal structures: The skeletal structures are osteopenic. There is moderate lumbosacral spondylosis and mild scoliosis. No lytic or blastic lesions are seen. Sclerotic change is noted in the sacroiliac joints and pubic symphysis. IMPRESSION: 1. No acute infectious or inflammatory findings are identified in the abdomen or pelvis. 2. Additional findings as above. Electronically signed by: Nirmal Valderrama M.D. 08/17/2024 4:42 PM Chest X-Ray 08/17/24 14:49 SINGLE VIEW CHEST CLINICAL HISTORY: Atypical chest pain. FINDINGS: An AP, portable, upright chest radiograph is compared to study dated 04/29/2024. The heart is enlarged noting atherosclerotic calcification of the thoracic aorta. The pulmonary vasculature is noncongested. Chronic interstitial thickening is similar to previous. There is mild bibasilar scarring/atelectasis. The lungs and pleural spaces are otherwise clear. No pneumothorax is seen. The skeletal structures are osteopenic. The bony thorax is grossly intact. Degenerative change is noted in the shoulders and spine. Cholecystectomy clips are noted in the right upper quadrant. IMPRESSION: Cardiomegaly with no active disease in the chest. Electronically signed by: Nirmal Valderrama M.D. 08/17/2024 3:09 PM Hospital Course (1) Flank Pain: - L-sided abd and flank pain started 08/17; no associated n/v/c/d, hematochezia, melena, hematuria - Pain initially 04/21; worse w movement but not positional; can radiate anteriorly to LLQ, not groin - Suspect musculoskeletal element to pain Advised patient on specific stretches for QL and using voltaren gel - Suspected element of IBS pain, related to excess eating on birthday Sx improved on PRN Bentyl + scheduled acetaminophen Kept on low fiber, low fat, low lactose diet - CTAP showed moderate colonic fecal retention Recommended miralax use as needed (2) Ambulatory dysfunction: - Secondary to pain above - PT/OT eval ordered (3) Hypertension: - Blood pressure appears were low-normal so usual anti-hypertensives were held; resume at discharge (4) Paroxysmal atrial fibrillation: - NSR during admission - Continue Eliquis (5) Aortic stenosis: - 4/6 systolic murmur noted on exam - Echo in March 2024 identified calcified and thickened aortic valve w mild to moderate disease, no regurg Total Time Total Time Spent Total Time Spent (In Minutes): <30 Discharge Plan Discharge Items Patient Disposition: Home - Self-Care Reason For Visit: AMBULATORY DYSFUNCTION Discharge Diagnosis: Ambulatory dysfunction 2/2 severe pain Condition on Discharge: Good Activity: Per Instructions section Non-emergency contact: Primary Care Provider Call non-emergency contact if: you have any medication questions and your symptoms worsen Follow-up/Referrals: Maurice Correia, [Primary Care Provider] - 08/27/24 11:00 am (Appointment will be with Dede Galindo) Diet: Regular Addtl Attending Provider Instructions: You were seen in the hospital due to severe back & flank pain. You were admitted because your pain was so bad that you were unable to walk, and were deemed unsafe to discharge home. You told us that you ate too much on your birthday, and these symptoms started about a day later. You also mentioned a similar episode last month, in which the distribution of the pain was different. Both incidents involved you feeling extremely cold. As discussed, we think these events are separate issues, and the coldness is your body's general reaction to being in pain. Your current pain is due to a muscle in your back, the quadtratus lumborum, which stretches from your ribs to your hips. To relieve this pain, we suggest you do some stretches and apply Voltaren gel. For the stretch, sit in a chair, bend down, and grab the leg with the hand on the same side as the pain. While holding the chair leg, contract the affected muscles by acting like you're going to sit up until you feel a stretch in the area that hurts. Hold this position for ~5 seconds. Then move your hand further down the chair leg and repeat. Do 3-5 repetitions, 3-5 times per day. The Voltaren (diclofenac) gel can be found in stores. Apply to wherever your pain in, and massage it in for a few minutes. Do this 3-5 times per day; it may take a few applications to notice effects, which makes it very important to regularly apply it. To remember both the stretches and gel, it might be effective to do them at the same time, since they have the same frequency. As discussed, if you experience abdominal pain, it may be helpful to take a capful of Miralax. You can take more or less as needed to relieve your symptoms. Make a follow-up appointment with your PCP within the next week. It is very important that you follow up with them shortly after discharge from the hospital. Please bring a copy of this discharge summary with you to your next office appointment so that your provider can review it at that time and stay updated on your hospitalization and potential changes in your care. Contact your PCP if your symptoms persist. Call 911 or go to the ER if you experience any of the following: Pain severe enough to limit your mobility Sudden, severe abdominal pain or nausea/vomiting Severe chest pain, or chest pain that radiates to your jaw or arm Sudden, severe shortness of breath Thank you for allowing us to participate in your care. Pending Studies at Discharge: No Stand-Alone Forms: My [facility], Smoking Cessation Medications and DC Order Prescriptions: Continued amlodipine 5 mg tablet 5 mg PO QAM Qty: 90 3RF triamterene-hydrochlorothiazid 37.5-25 mg capsule 1 cap PO QAM Qty: 90 3RF (DME) Shayan Aerosol [place] Enhancer Spacer See Rx Instructions .Route Qty: 1 0RF Rx Instructions: As directed rosuvastatin 5 mg tablet 5 mg PO HS Qty: 90 1RF Eliquis 5 mg tablet 5 mg PO BID 90 Days Qty: 180 3RF Rx Instructions: TAKE 1 TABLET BY MOUTH TWICE DAILY Multi For Her 50 Plus 400-80 mcg Capsule 1 cap PO QAM Macular Health Formula 5-1-7.5 mg Capsule 1 cap PO QAM cyclobenzaprine 5 mg tablet 5 mg PO TID PRN (Reason: muscle spasm) Qty: 30 0RF Discharge Orders: Discharge Order (Routine); Ordered 08/18/24 Ordered By: Jeb Borrego Admission Data Admit Date/Time: 08/17/24 18:39 Attending Provider: Norbert Alfaro Admit Provider: Prasanna Leon Primary Care Provider: Maurice Correia Other Providers: Prasanna Leon Other Interventions: Discharge Summary Assessment (RN) Last Done: 08/18/24 13:59 Supervising Physician Co-Signing Physician Notes I personally examined the patient and verified all lane points of history and exam, discussed case, and agree with decision making with Dr Borrego Feeling somewhat better, still left lower back pain some. Vitals noted, in general she is awake and alert pleasant no distress. Left lower back in the region of the lumbar paraspinals and quadratus lumborum high tone, tender, decreased range of motiondirect myofascialimproved somewhat. Left lower back painmuscle spasmgentle OMT as above, stretches outlined, Voltaren gel, follow-up with PCP. Lower abdominal pain last monthwith CT scan showing a moderate degree of fecal load, I suspect she may run more chronically constipated than she realizes. Discussed MiraLAX daily as a stool softener. Safe/stable for home. Otherwise as above. Resident Activity Tracking Resident Involvement: Resident Care Provided Care Provided: Adult Hospital Medicine
[2024-08-18 08:06] LABS: Basophils # (auto) 0.04 K/uL (0.00-0.20); Basophils % (auto) 0.8 %; Eosinophils # (auto) 0.26 K/uL (0.00-0.50); Eosinophils % (auto) 4.9 %; Hematocrit (blood only) 30.3 % (37.0-47.0); Hemoglobin 9.4 g/dl (12.0-16.0); Immature Granulocytes # (auto) 0.01 K/uL (0.01-0.20); Immature Granulocytes % (auto) 0.2 %; Lymphocytes # (auto) 0.98 K/uL (1.20-3.40); Lymphocytes % (auto) 18.5 %; Mean Corpuscular Volume 93.5 fL (80.0-100.0); Mean Platelet Volume 10.9 fL (9.4-12.4); Monocytes # (auto) 0.65 K/uL (0.11-0.59); Monocytes % (auto) 12.3 %; Neutrophils # (auto) 3.35 K/uL (1.40-6.50); Neutrophils % (auto) 63.3 %; Platelet Count 166 K/uL (130-400); RDW Coefficient of Variation 13.7 % (11.5-14.5); RDW Standard Deviation 47.3 fL (36.4-46.3); Red Blood Count 3.24 M/uL (4.20-5.40); White Blood Count 5.29 K/ul (4.8-10.8)
[2024-08-18 08:19] VITALS: BP 111/65; PULSE 50; TEMP 98.4; O2SAT 100
[2024-08-18 08:36] LABS: Albumin Globulin Ratio 1.4 (0.9-2); Albumin Level 3.3 gm/dl (3.4-5.0); BUN Creatinine Ratio 22.7 (10-20); Bilirubin,Total 0.8 mg/dl (0.2-1.0); Calcium 8.7 mg/dl (8.6-10.3); Globulin 2.4 gm/dl (2.5-4.0); Magnesium 1.8 mg/dl (1.7-2.4); Phosphorus 3.4 mg/dl (2.5-4.9); Potassium 4.2 mmol/L (3.5-5.1); Total Protein 5.7 gm/dl (6.0-8.3)
[2024-08-18] MEDS ORDERED: TRIAMTERENE/HCTZ 37.5/25MG TAB PO SCH (09:00)
[2024-08-18] MEDS ORDERED: amLODIPine BESYLATE 5 MG TAB PO SCH (09:00)
--- NOTE | 2024-08-18 14:26 | Electrocardiogram Report ---
Test Reason : Blood Pressure : */* mmHG Vent. Rate : 75 BPM Atrial Rate : 75 BPM P-R Int : 160 ms QRS Dur : 102 ms QT Int : 398 ms P-R-T Axes : 59 -36 74 degrees QTcB Int : 444 ms Sinus rhythm Premature atrial complexes Left axis deviation Incomplete right bundle branch block Minimal voltage criteria for LVH, may be normal variant ( [place] product ) Abnormal ECG When compared with ECG of 17-Jul-2024 21:47, No significant change was found Confirmed by Den Russo ([id number]) on 08/18/2024 2:26:38 PM Referred By: REFERRED SELF Confirmed By: Den Russo
--- NOTE | 2024-08-18 19:19 | Billing Data ---
Date of Service August 18, 2024 Coding Level of Care Code 64879 IN/OBS DISCH 30 MIN/LESS
== END 2024-08-18 14:40 | disposition home or self-care (01) ==
LOC: 3W 14:37 → ED 14:37 → SUATTDRO 18:39 → 3W 20:24